=== PATIENT | male | born 2000 | race Caucasian/White ===

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

== ENCOUNTER 2022-08-14 13:42 | Emergency (ER) | payer MEDICAID, SELFPAY ==
[2022-08-14 13:48] VITALS: BP 126/77; PULSE 78; RESP 16; TEMP 36.2; O2SAT 98; BMI 17.6
--- NOTE | 2022-08-14 13:50 | XR_ITS ---
WS: [id number] Chest 2 views, 08/14/2022 Clinical Data: shortness of breath Comparison: PA and lateral chest, 03/18/2021. Findings: No nodules, masses or effusions are seen. The heart is normal. The pulmonary vascularity is not increased. No pneumonia or pneumothorax is seen. XR/XR chest 2V* [id number] Impression: Negative chest.
--- NOTE | 2022-08-14 14:42 | ED_ITS ---
HPI - SOB/Dyspnea General: Chief Complaint: Shortness of Breath/Dyspnea Stated Complaint: Sob Time Seen by Provider: 08/14/22 14:34 History of Present Illness: HPI Narrative: Patient is a 21-year-old male who comes to the ED with shortness of breath and cough. Patient says symptoms started approximately 5 days ago. Says his cough is productive with yellowish sputum. Endorses having some nasal congestion and drainage. Denies any chest pain, fevers, nausea/vomiting, abdominal pain, bladder or bowel symptoms. Denies any history of lung problems. Associated symptoms: Deny abdominal pain, chest pain, fever(s), nausea, orthopnea, palpitations or vomiting Review of Systems Const: Denies: fever(s), chills or fatigue Eyes: Denies: change in vision or eye discomfort ENMT: Denies: throat pain, odynophagia, nasal discharge or nasal congestion Card: Denies: chest pain, palpitations, edema, swelling of feet/ankles, dyspnea on exertion or orthopnea Resp: Reports: dyspnea and productive cough; Denies: non-productive cough GI: Denies: abdominal pain, nausea, vomiting, diarrhea, constipation or hematochezia : Denies: flank pain, difficulty urinating, dysuria or hematuria Musc: Denies: neck pain, back pain or extremity swelling Skin/Breast: Denies: rash or new lesions Neuro: Denies: headache(s), numbness in extremities or weakness in extremities PFS ED PFSH: Medical History Rib pain on right side Surgical History Hx of oral surgery Social History Smoking and tobacco status: current every day smoker cigarettes Packs smoked per day: 1 Alcohol intake: current Alcohol intake frequency: holidays/special occasions only Marital status: Single Number of children: 0 Number of grandchildren: 0 Current occupational status: employed Physical Exam Const: COMMON NORMALS: no acute distress, patient oriented x3 and alert GENERAL APPEARANCE: cooperative and comfortable HENMT: COMMON NORMALS: normocephalic HEAD & SCALP: normocephalic MOUTH: Normal oral and palatal mucosa present THROAT: posterior oropharynx normal and uvula midline Neck/C-Spine: COMMON NORMALS: supple GENERAL: Yes normal visual inspection Resp: COMMON NORMALS: normal respiratory effort, No retractions, No use of accessory muscles and clear to auscultation bilaterally AUSCULTATION: clear to auscultation bilaterally Cardio: COMMON NORMALS: regular rate, regular rhythm, S1 normal heart sound present, S2 normal heart sound present, No gallops present (Cardio), No clicks present (Cardio), No murmurs present (Cardio) and Peripheral pulses 2+ throughout RATE: regular rate RHYTHM: regular rhythm HEART SOUNDS: S1 normal heart sound present and S2 normal heart sound present PERIPHERAL PULSES: Peripheral pulses 2+ throughout GI: COMMON NORMALS: Normal to inspection, nondistended, normoactive bowel sounds present, Soft to palpation, non-tender and no masses PALPATION: Yes Soft to palpation : COMMON NORMALS: Yes no CVA tenderness BLADDER/KIDNEY EXAM: Yes no CVA tenderness Back/Pelvis: COMMON NORMALS: no CVA tenderness Extremity: COMMON NORMALS: normal to inspection Neuro: COMMON NORMALS: patient oriented x3 SENSORIUM/ORIENTATION: Yes alert GAIT: Yes Normal gait present Skin: GENERAL SKIN EXAM: dry skin Course Vital Signs: Vital signs: Vital Signs Temperature 97.2 F L 08/14/22 13:48 Pulse Rate 65 08/14/22 14:59 Respiratory Rate 16 08/14/22 14:59 Blood Pressure 122/78 08/14/22 14:59 Pulse Oximetry 98 08/14/22 14:59 Oxygen Delivery Me thod 08/14/22 13:48 MDM - SOB/Dyspnea Medical Decision Making Patient is a 21-year-old male who comes to the ED with shortness of breath and cough. Patient says symptoms started approximately 5 days ago. Says his cough is productive with yellowish sputum. Endorses having some nasal congestion and drainage. Denies any chest pain, fevers, nausea/vomiting, abdominal pain, bladder or bowel symptoms. Denies any history of lung problems. Vitals are stable. Exam of patient is benign and he appears nontoxic in no acute distress or pain. Chest x-ray shows no acute findings. He was diagnosed with bronchitis and discharged home with a prescription for azithromycin and Medrol Dosepak. Return to ED precautions given. Follow-up with PCP in the next week for reevaluation. Patient understood and agreed with plan. Lab Data Labs/Radiology: Radiology Impressions Chest X-Ray 08/14/22 13:50 Impression: Negative chest. Discharge Plan Discharge Patient Disposition: Home Clinical Impression: Bronchitis Condition: Stable Prescriptions: New azithromycin 250 mg tablet See Rx Instructions .ROUTE .COMPLEX Qty: 6 0RF Rx Instructions: For 250 mg dose pack: take 500 mg today (day 1), then 250 mg for 4 days (days 2-5) Medrol (Dev) 4 mg tablets,dose pack See Rx Instructions .ROUTE .COMPLEX Qty: 21 0RF Rx Instructions: orally per package directions Discharge Orders: Discharge ED (Routine); Ordered 08/14/22 Ordered By: Elder Taylor Referrals: Arturo Serna MD [Primary Care Provider] - Discharge Diet: Regular Discharge Activity: Increase activity as tolerated Patient Instructions: Acute Bronchitis (ED) Activity Restrictions/Additional Instructions: Follow-up with medical provider as directed in the next 5 to 7 days reevaluation. Take medications as prescribed. Return to the ER or your medical provider if condition worsens. Please read and understand discharge instructions. Thank you for choosing [facility] for your healthcare needs today. Please realize this is an emergency room and that we are providing you with a medical screening exam and this may not be complete and all inclusive of all the testing and or work up that you may need to determine your ailment or severity of your illness. It is very important that you follow up as instructed or that you return to the Emergency Department should you have concerns or if your condition changes or worsens in any way. Coding Level of Care Code ED Patient Financial Rep for Octaviano Luong Exam Comprehensive
[2022-08-14 14:59] VITALS: BP 122/78; PULSE 65; RESP 16; O2SAT 98
== END 2022-08-14 15:01 | disposition home or self-care (01) ==
PROVIDERS: Emergency Provider Physician Assistant; PCP Family Medicine Adult Medicine
DX: J40 Bronchitis, not specified as acute or chronic (principal); F17.210 Nicotine dependence, cigarettes, uncomplicated
CPT/HCPCS: 71046; 99283

== ENCOUNTER 2023-05-19 20:28 | Emergency (ER) | payer MEDICAID, SELFPAY ==
[2023-05-19 20:35] VITALS: BP 112/74; PULSE 56; RESP 16; TEMP 36.4; O2SAT 100
--- NOTE | 2023-05-19 20:41 | ED_ITS ---
HPI - General Adult General: Chief complaint: General Medical Stated complaint: Hit in Throat Time Seen by Provider: 05/19/23 20:41 History of Present Illness: Mr. Can is a 22-year-old gentleman without significant past medical history presenting there is department for evaluation of neck trauma. He reports horsing around with his and was accidentally kneed in the middle of his neck. Immediately had some pain. Endorses mild continued pain. No difficulty breathing or swallowing. No hemoptysis. No other specific changes in health, exacerbating, or alleviating factors identified. Onset (ago): minute(s) Location: neck Review of Systems General: Reports: 10 or more systems reviewed and unremarkable except in HPI and below PFSH ED PFSH: Medical History Rib pain on right side Surgical History Hx of oral surgery Social History Smoking and tobacco status: current every day smoker cigarettes Packs smoked per day: 1 Alcohol intake: current Alcohol intake frequency: holidays/special occasions only Substance/Drug Use: current Substance/Drug use frequency: few times a month Other substance/drug use details: cbd gummies Marital status: Single Number of children: 0 Number of grandchildren: 0 Current occupational status: employed Physical Exam Const: COMMON NORMALS: alert GENERAL APPEARANCE: cooperative and well developed HENMT: COMMON NORMALS: normocephalic and atraumatic HEAD & SCALP: normocephalic and atraumatic THROAT: posterior oropharynx normal Eye: COMMON NORMALS: conjunctivae normal CONJUNCTIVA: Yes conjunctivae normal SCLERA: sclerae normal Neck/C-Spine: COMMON NORMALS: supple GENERAL: Yes trachea midline OTHER: See MDM Resp: COMMON NORMALS: clear to auscultation bilaterally EFFORT & INSPECTION: Yes able to speak in complete sentences AUSCULTATION: clear to auscultation bilaterally Cardio: COMMON NORMALS: regular rate and regular rhythm RATE: regular rate RHYTHM: regular rhythm GI: COMMON NORMALS: Soft to palpation PALPATION: Yes Soft to palpation and No Tenderness to palpation present (GI) Extremity: GENERAL: Yes normal exam except as noted and No edema Neuro: COMMON NORMALS: moves all extremities SENSORIUM/ORIENTATION: Yes alert and No Orientation impaired Psych: COMMON NORMALS: mental status grossly normal and Normal thought process present THOUGHT PROCESS: Normal thought process present Course Vital Signs: Vital signs: Vital Signs Temperature 97.6 F 05/19/23 20:35 Pulse Rate 64 05/19/23 21:22 Respiratory Rate 16 05/19/23 21:22 Blood Pressure 118/68 05/19/23 21:22 Pulse Oximetry 98 05/19/23 21:22 Oxygen Delivery Me thod Room Air 05/19/23 20:35 MDM - General Adult Medical Decision Making 22-year-old male presenting with blunt neck trauma. Exam as above. Phonation normal and no evidence of abnormal upper airway noises. Mild midline trachea tenderness to palpation. No soft tissue crepitus or soft tissue emphysema. Vascular exam unremarkable to palpation and auscultation of carotids bilaterally. No rapid expanding hematoma or ecchymosis/hematoma appreciated. Neck x-ray without acute finding. No changes on repeat exam. The results of ED evaluation were discussed with the patient including prescriptions and/or symptomatic cares (if applicable) including appropriate and responsible use, followup plan, and return precautions. The patient verbalized understanding and felt safe for discharge. Medical Records I reviewed the patient's medical records. Lab Data I reviewed the patient's lab results. Radiology Impressions Soft Tissue Neck X-Ray 05/19/23 20:45 IMPRESSION: No acute findings. Discharge Plan Discharge Patient Disposition: Home Clinical Impression: Blunt trauma of neck Condition: Stable Prescriptions: No Action meloxicam 15 mg tablet 15 mg PO DAILY Qty: 14 0RF Discharge Orders: Discharge ED (Routine); Ordered 05/19/23 Ordered By: Nathanael Pereyra Referrals: Arturo Serna MD [Primary Care Provider] - Discharge Diet: Usual diet Discharge Activity: Resume usual activity Patient Instructions: Contusion in Adults (ED) Activity Restrictions/Additional Instructions: Thank you for visiting the emergency department. You were seen and evaluated for blunt neck trauma. Given physical exam and imaging findings I believe that the likely cause of your symptoms is related to soft tissue contusion. I do not see indication for hospitalization. You may use [id number] medications such as acetaminophen and ibuprofen for pain however please do not exceed the daily recommended dosage as listed on the packaging and please keep in mind that many namebrand medications contain the same active ingredients. Please avoid these medications if previously instructed to do so by another physician due to other underlying medical condition. Call 911 or return immediately for difficulty breathing, rapidly expanding swelling, inability to swallow, change in voice, or anything else that you are concerned about and feel needs emergency department evaluation. Stand Alone Forms: Work/School Release Coding Level of Care Code ED Certified Vehicle Fire Investigator for Octaviano Luong
--- NOTE | 2023-05-19 20:45 | XRR_ITS ---
PROCEDURE INFORMATION: Exam: XR Soft Tissue Neck Exam date and time: 05/19/2023 8:49 PM Age: 22 years old Clinical indication: Throat pain; Additional info: Blunt trauma anterior neck TECHNIQUE: Imaging protocol: Radiologic exam of the soft tissues of the neck. COMPARISON: CR XR chest 2V* [id number] 08/14/2022 2:16 PM FINDINGS: Airway: Normal. No abnormal narrowing. Soft tissues: Normal. Normal epiglottis. Bones/joints: Unremarkable. XR/XR soft tissue neck [id number] IMPRESSION: No acute findings.
[2023-05-19] MEDS: acetaminophen 500 mg Tablet 1000 MG PO (21:11)
[2023-05-19 21:22] VITALS: BP 118/68; PULSE 64; RESP 16; O2SAT 98
== END 2023-05-19 21:24 | disposition home or self-care (01) ==
PROVIDERS: Emergency Provider Emergency Medicine; PCP Family Medicine Adult Medicine
DX: S19.9XXA Unspecified injury of neck, initial encounter (principal); F17.210 Nicotine dependence, cigarettes, uncomplicated; W50.0XXA Accidental hit or strike by another person, initial encounter; Y93.83 Activity, rough housing and horseplay
CPT/HCPCS: 70360; 99283; J1885

== ENCOUNTER 2024-08-06 16:37 | Emergency (ER) | payer MEDICAID, SELFPAY ==
[2024-08-06] VITALS (10 sets, daily range): BP systolic 114–141; BP diastolic 67–81; PULSE 48–75; RESP 13–22; TEMP 36.7; O2SAT 95–100; BMI 18.8
--- NOTE | 2024-08-06 20:24 | CTR_ITS ---
PROCEDURE INFORMATION: Exam: CT Head Without Contrast Exam date and time: 08/06/2024 8:56 PM Age: 23 years old Clinical indication: Pain; Patient HX: C/O persistent RT sided headaches over last two months. ; Additional info: Headaches for 2 months TECHNIQUE: Imaging protocol: Computed tomography of the head without contrast. Radiation optimization: All CT scans at this facility use at least one of these dose optimization techniques: automated exposure control; mA and/or kV adjustment per patient size (includes targeted exams where dose is matched to clinical indication); or iterative reconstruction. COMPARISON: CR XR soft tissue neck [id number] 05/19/2023 8:49 PM RADIATION DOSE METRICS: Total DLP (mGy-cm): 894.78 FINDINGS: Brain: Normal. No hemorrhage. Unremarkable white matter. No mass effect. Cerebral ventricles: No ventriculomegaly. Paranasal sinuses: Visualized sinuses are unremarkable. No fluid levels. Mastoid air cells: Visualized mastoid air cells are well aerated. Bones: Unremarkable. No acute fracture. Soft tissues: Unremarkable. CT/CT head wo con* [id number] IMPRESSION: No acute intracranial abnormality.
[2024-08-06] MEDS: diphenhydrAMINE 50 mg Capsule PO (20:33)
[2024-08-06] MEDS: dexamethasone 4 mg Tablet 10 MG PO (20:33)
[2024-08-06] MEDS: ondansetron 4 MG Tablet PO (20:33)
[2024-08-06] MEDS: ketorolac 10 mg Tablet PO (20:33)
--- NOTE | 2024-08-06 20:56 | ECG_ITS ---
[facility] Test Date: 2024-08-06 Pat Name: Abdon Can Department: Room: Gender: Male Forensics Analyst: : 2000 Requested By: Dov Nguyễn Order Number: [id number] Elvira MD: Jayna Lama M.D. Measurements Intervals [place] Rate: 60 P: 58 CT: 165 QRS: 61 QRSD: 102 T: 49 QT: 369 QTc: 371 Interpretive Statements SINUS RHYTHM WITH SINUS ARRHYTHMIA EARLY REPOLARIZATION [ST ELEVATION WITH NORMALLY INFLECTED T-WAVE] No previous ECG available for comparison Electronically Signed On 08-07-2024 22:27:10 CDT by Jayna Lama M.D. [email or web address]
--- NOTE | 2024-08-06 22:08 | ED_ITS ---
HPI - Headache General: Chief Complaint: Headache Stated Complaint: right sided headache - couple months Time Seen by Provider: 08/06/24 19:34 History of Present Illness: Patient is a 23-year-old healthy appearing male that presents to the emergency department with complaints of headaches for 2 months. Onset of symptoms today was this morning. He trialed 800 mg of ibuprofen which did help with his headache but the meds wore off and his headache returned. Denies nausea vomiting vision changes, dizziness, balance issues. Typically has headaches are all over but today it seemed to be more right-sided. Associated symptoms: Deny chest pain, confusion, fever(s), malaise, nausea, rash or vomiting Related Data Previous Rx's Medication Instructions Recorded meloxicam 15 mg tablet 15 mg PO DAILY #14 tabs 03/04/23 Allergies Allergy/AdvReac Type Severity Reaction Status Date / Time No Known Allergies Allergy Verified 05/19/23 20:35 Review of Systems General: Reports: 10 or more systems reviewed and unremarkable except in HPI and below Const: Denies: fever(s), chills, change in appetite, change in weight, fatigue or malaise Eyes: Denies: change in vision, eye discomfort, eye discharge or eye redness ENMT: Denies: throat pain, enlarged tonsils, odynophagia, hoarseness, ear or mastoid pain, ear discharge, change in hearing, tinnitus, nasal discharge, nasal congestion, post nasal drip or sinus pain Card: Denies: chest pain, palpitations, irregular heart rhythm, edema, dyspnea on exertion, orthopnea or leg pain with exertion Resp: Denies: dyspnea, productive cough, non-productive cough, wheezing, stridor or chest congestion GI: Denies: abdominal pain, nausea, vomiting, dysphagia, diarrhea, constipation, bloating, GI cramping or hematochezia : Denies: flank pain, dysuria, urinary frequency, urinary urgency, urinary hesitancy, oliguria or hematuria Musc: Denies: neck pain, back pain, extremity pain, joint pain, joint swelling, joint redness, joint warmth or muscle weakness Skin/Breast: Denies: rash, pruritus, erythema, photosensitivity or new lesions Neuro: Reports: headache(s); Denies: numbness in extremities, weakness in extremities, sensory changes, lack of coordination, difficulty walking, frequent falls, dizziness, confusion, Slurred speech present, difficulty communicating thoughts, seizure-like activity or involuntary movements Endo: Denies: polyuria, polydipsia or tired all the time Nik/Lymph: Denies: easy bruising or easy bleeding PFSH ED PFSH: Medical History Rib pain on right side Surgical History Hx of oral surgery Social History Smoking and tobacco/nicotine status: current every day tobacco/nicotine user cigarettes Packs smoked per day: 1 Alcohol intake: current Alcohol intake frequency: holidays/special occasions only Substance/Drug Use: current Substance/Drug use frequency: few times a month Other substance/drug use details: cbd gummies Marital status: Single Number of children: 0 Number of grandchildren: 0 Current occupational status: employed Physical Exam Const: COMMON NORMALS: no acute distress, patient oriented x3 and alert GENERAL APPEARANCE: cooperative ORIENTATION/CONSCIOUSNESS: Yes awake, Yes oriented to person, Yes oriented to place and Yes oriented to time HENMT: COMMON NORMALS: normocephalic and atraumatic HEAD & SCALP: normocephalic and atraumatic FACE & SINUS: normal facial exam MOUTH: Normal oral and palatal mucosa present THROAT: posterior oropharynx normal Eye: COMMON NORMALS: Equal, round and reactive pupils present, EOMs intact bilaterally, conjunctivae normal and no scleral icterus GENERAL EYE: appearance normal, both eyes and all related structures ALIGNMENT: Yes alignment normal PERIORBITAL: periorbital findings normal CONJUNCTIVA: Yes conjunctivae normal PUPIL: Yes Equal, round and reactive pupils present Neck/C-Spine: COMMON NORMALS: full ROM GENERAL: Yes normal visual inspection Lymph: LYMPHATIC: no lymphadenopathy noted Chest: COMMONS NORMALS: normal inspection of the chest Breast/axilla inspection: Yes no chest deformity, asymmetry, normal contours, no nodules, masses, tenderness Resp: COMMON NORMALS: normal respiratory effort, No retractions, No use of accessory muscles and clear to auscultation bilaterally EFFORT & INSPECTION: Yes able to speak in complete sentences and Yes symmetric chest movement AUSCULTATION: clear to auscultation bilaterally Cardio: COMMON NORMALS: regular rate, regular rhythm and Peripheral pulses 2+ throughout RATE: regular rate RHYTHM: regular rhythm PERIPHERAL PULSES: Peripheral pulses 2+ throughout GI: COMMON NORMALS: Normal to inspection, nondistended, normoactive bowel sounds present, Soft to palpation, non-tender and No hepatosplenomegaly present INSPECTION: Yes normal to inspection AUSCULTATION: Yes normoactive bowel sounds PALPATION: Yes Soft to palpation and Yes No hepatosplenomegaly present RECTAL EXAM: Yes deferred Extremity: COMMON NORMALS: normal to inspection GENERAL: Yes normal exam except as noted Neuro: COMMON NORMALS: patient oriented x3 SENSORIUM/ORIENTATION: Yes alert, Yes oriented to person, Yes oriented to place and Yes oriented to time CRANIAL NERVES: Yes CN normal except as noted Psych: COMMON NORMALS: mental status grossly normal, Normal thought process present, cooperative, activity/motor behavior normal, denies homicidal ideation and denies suicidal ideation THOUGHT PROCESS: Normal thought process present Skin: COMMON NORMALS: no rashes or lesions noted, no wounds and turgor normal GENERAL SKIN EXAM: no rashes or lesions noted and turgor normal Course Vital Signs: Vital signs: Vital Signs Temperature 98.1 F 08/06/24 17:02 Pulse Rate 57 L 08/06/24 21:55 Respiratory Rate 15 08/06/24 21:55 Blood Pressure 121/73 08/06/24 21:55 Pulse Oximetry 96 08/06/24 21:55 Oxygen Delivery Me thod Room Air 08/06/24 17:02 MDM - Headache Medical Decision Making Patient evaluated in the emergency department today for complaints of headache. Onset of symptoms was this morning but he has been having chronic headaches for the last 2 months. The differential diagnosis for this would be migraine, simple headache, fracture, mass, meningitis/infection Patient has no symptoms of infection and denies head trauma. We did perform a CT head without contrast which was unremarkable. Patient's heart rate was noted as being low. We did an EKG which shows sinus rhythm with a sinus arrhythmia. No ectopy, ST elevation or abnormal T wave inversion. Patient I discussed diagnostic findings. Patient is going to need to establish primary care. Meds that were given here were Benadryl, Decadron, Toradol, and Zofran. The case packer and sealer reach out to him to ensure he gets primary care set up. Lab Data Radiology Impressions Head CT 08/06/24 20:24 IMPRESSION: No acute intracranial abnormality. All radiology interpretation(s) finalized by discharge Discharge Plan Discharge Patient Disposition: Home Clinical Impression: Headache Condition: Stable Prescriptions: No Action meloxicam 15 mg tablet 15 mg PO DAILY Qty: 14 0RF Discharge Orders: Discharge ED (Routine); Ordered 08/06/24 Ordered By: Dov Gregorio Referrals: Arturo Serna MD [Primary Care Provider] - Discharge Diet: Advance as tolerated Discharge Activity: Resume usual activity Patient Instructions: Pain Management Activity Restrictions/Additional Instructions: Medications that are used for migraine are numerous. Here I gave you a nonsteroidal anti-inflammatory drug (like ibuprofen) along with Benadryl, a steroid, and an antiemetic. You can achieve this with [id number] medications if needed. I want you to establish primary care. Please return to the emergency department for new concerning or worsening symptoms Coding Level of Care Code ED Assembler Metal Furniture for Octaviano Luong
== END 2024-08-06 22:45 | disposition home or self-care (01) ==
PROVIDERS: Emergency Provider Nurse Practitioner; PCP Family Medicine Adult Medicine
DX: R51.9 Headache, unspecified (principal); F17.210 Nicotine dependence, cigarettes, uncomplicated
CPT/HCPCS: 70450; 93005; 99284; J8540; Q0162; Q0163